=== PATIENT | male | born 1955 | race Caucasian/White ===

== ENCOUNTER 2016-05-19 07:09 | Day surgery (SDC) | payer BC ==
[2016-05-19] MEDS ORDERED: Lactated Ringers 1,000 ML IV SCH (07:30)
[2016-05-19] MEDS ORDERED: Midazolam 1 MG/ML 2 ML SDV ONE (08:18)
[2016-05-19] MEDS ORDERED: Propofol 200 MG/20 ML SDV ONE (08:18)
[2016-05-19] MEDS ORDERED: fentaNYL 100 MCG/2 ML SDV ONE (08:18)
[2016-05-19 11:25] VITALS: BP 148/82
--- NOTE | 2016-05-20 07:11 | OR ---
DATE OF PROCEDURE: 05/19/2016 PREOPERATIVE DIAGNOSES: 1. History of ulcerative colitis. 2. History of colon polyps. POSTOPERATIVE DIAGNOSES: 1. Two small colon polyps, 15 and 20 cm from the anal verge. 2. History of ulcerative colitis. 3. History of colon polyps. PROCEDURE: Colonoscopy to the cecum with biopsy resection of two small colon polyps, 50 and 20 cm from the anal verge. ANESTHESIA: IV anesthesia with monitored anesthesia care. INDICATION: This 60-year-old white male is referred for a colonoscopy because of the history of ulcer colitis and history of polyps. His last colonoscopic exam was done 5 years ago. At that time, no polyps were seen. I counseled him for a colonoscopy with possible biopsy and/or polypectomy including risks and alternatives, and he gave his informed consent to proceed. DESCRIPTION OF PROCEDURE: The patient was placed in the left lateral decubitus position. IV anesthesia was administered by the Anesthesia Service. Time-out was held. A rectal exam was performed, which was unremarkable. The flexible video Olympus colonoscope was introduced through his anus, up his rectum, and out his colon all way to the cecum. Once the cecum was reached, the scope was slowly withdrawn examining the mucosa throughout. No mucosal abnormalities were noted till we reached 50 cm from the anal verge. Here a small polyp was seen, which was removed with the biopsy forceps. The scope was withdrawn further with another small polyp seen 20 cm from the anal verge which was again removed with the biopsy forceps. The scope was brought back into the rectum, where it was retroflexed. The distal rectum appeared unremarkable. The scope was straightened and removed. He tolerated the procedure well. Adelso Heaton MD /[id number] MTDD
== END 2016-05-19 11:44 | disposition home or self-care (01) ==
LOC: JP.SDS 07:09
PROVIDERS: ATTEND Surgery
PROC: 0DBE8ZX Excision of Large Intestine, Via Natural or Artificial Opening Endoscopic, Diagnostic (ICD-10-PCS; principal; 2016-05-19)
DX: Z12.11 Encounter for screening for malignant neoplasm of colon (principal); D12.6 Benign neoplasm of colon, unspecified
CPT/HCPCS: 45380; J2250; J2704; J3010; J7120; 88305

== ENCOUNTER 2019-12-11 13:53 | Emergency (ER) | payer BC, OTHER ==
[2019-12-11 14:11] VITALS: BP 160/106; PULSE 82
--- NOTE | 2019-12-11 14:53 | EDM.PDOC ---
ED HPI GENERAL MEDICAL PROBLEM - General Chief Complaint: General Stated Complaint: SUGAR LEVLES Time Seen by Provider: 12/11/19 14:49 Source of Information: Reports: Patient History Limitations: Reports: No Limitations - History of Present Illness INITIAL COMMENTS - FREE TEXT/NARRATIVE: pt has had a dry hacky cough for the past week. Today he felt very weak and was not able to do his work. He ate some sugar because he thought it could be a low sugar. Pt did not vomit. He has had chills all day and a headache. He was not able to eat this am. Onset: Today, Gradual, Other ( this has been coming and going all day. ) Duration: Hour(s): Location: Reports: Generalized, Other ( alot of muscle weakness and pain. ) Associated Symptoms: Reports: Loss of Appetite, Malaise, Weakness - Related Data Allergies Allergy/AdvReac Type Severity Reaction Status Date / Time KENNETH Inhibitors Allergy Cough Verified 12/11/19 14:07 meperidine Allergy Shaking Verified 12/11/19 14:07 Home Meds: Home Meds Metoprolol Succinate [Toprol XL] 50 mg PO DAILY 05/16/16 [History] metFORMIN [Glucophage] 500 mg PO BID 05/16/16 [History] Simvastatin 20 mg PO DAILY 04/21/18 [History] Past Medical History HEENT History: Reports: Impaired Vision Cardiovascular History: Reports: High Cholesterol, Hypertension Gastrointestinal History: Reports: Colon Polyp, Other (See Below) Other Gastrointestinal History: colitis Genitourinary History: Reports: Diabetic Nephropathy, Prostate Disorder Musculoskeletal History: Reports: Arthritis Neurological History: Reports: Neuropathy, Diabetic Endocrine/Metabolic History: Reports: Diabetes, Type II, Obesity/BMI 30+ Immunologic History: Reports: Other (See Below) Other Immunologic History: [place], [place] - Infectious Disease History Infectious Disease History: Reports: Chicken Pox, Measles - Past Surgical History Head Surgeries/Procedures: Reports: None HEENT Surgical History: Reports: None Cardiovascular Surgical History: Reports: None GI Surgical History: Reports: Appendectomy, Colonoscopy Endocrine Surgical History: Reports: None Neurological Surgical History: Reports: None Musculoskeletal Surgical History: Reports: Knee Replacement, Shoulder Surgery Dermatological Surgical History: Reports: None Social & Family History - Tobacco Use Smoking Status *Q: Never Smoker Second Hand Smoke Exposure: No - Caffeine Use Caffeine Use: Reports: Coffee - Recreational Drug Use Recreational Drug Use: No ED ROS GENERAL - Review of Systems Review Of Systems: See Below Constitutional: Reports: Chills, Malaise, Weakness, Decreased Appetite HEENT: Reports: No Symptoms Respiratory: Reports: Other ( hack dry cough) Cardiovascular: Reports: No Symptoms Endocrine: Reports: No Symptoms GI/Abdominal: Reports: No Symptoms : Reports: No Symptoms Musculoskeletal: Reports: No Symptoms Skin: Reports: No Symptoms ED EXAM, GENERAL - Physical Exam Exam: See Below Free Text/Narrative:: pt appears lethargic and very fatiqued, He just became ill this am. His appears to have the same thing. Exam Limited By: No Limitations General Appearance: Alert, Anxious, Mild Distress, Other (pupils are equal and reactive. ) Ears: Normal TMs Nose: Normal Inspection Throat/Mouth: Normal Inspection Head: Atraumatic Neck: Normal Inspection Respiratory/Chest: No Respiratory Distress Cardiovascular: Regular Rate, Rhythm, Tachycardia GI/Abdominal: Soft, Non-Tender (Male) Exam: Deferred Rectal (Males) Exam: Deferred Back Exam: Normal Inspection Extremities: Normal Inspection Neurological: Alert, Oriented, Normal Cognition Course - Vital Signs Last Recorded V/S: Last Vital Signs Temp 37.1 C 12/11/19 14:11 Pulse 82 12/11/19 14:11 Resp 16 12/11/19 14:11 BP 160/106 H 12/11/19 14:11 Pulse Ox 98 12/11/19 14:11 - Orders/Labs/Meds Labs: Laboratory Tests 12/11/19 12/11/19 12/11/19 Range/Units 14:23 14:23 14:45 WBC 33.9 H* (4.5-11.0) K/uL RBC 5.65 (4.30-5.90) M/uL Hgb 16.5 H (12.0-15.0) g/dL Hct 49.3 (40.0-54.0) % MCV 87 (80-98) fL MCH 29 (27-31) pg MCHC 34 (32-36) % Plt Count 231 (150-400) K/uL Add Manual Diff Yes Neutrophils % (Manual) 69 H (36-66) % Band Neutrophils % 16 H (5-11) % Lymphocytes % (Manual) 10 L (24-44) % Monocytes % (Manual) 5 (2-6) % Sodium 141 (140-148) mmol/L Potassium 3.9 (3.6-5.2) mmol/L Chloride 105 (100-108) mmol/L Carbon Dioxide 24 (21-32) mmol/L Anion Gap 11.6 (5.0-14.0) mmol/L BUN 20 H (7-18) mg/dL Creatinine 1.1 (0.8-1.3) mg/dL Est Cr Clr Drug Dosing 66.50 mL/min Estimated GFR (MDRD) > 60 (>60) Glucose 130 H (74-106) mg/dL Calcium 9.0 (8.5-10.1) mg/dL Total Bilirubin 1.0 (0.2-1.0) mg/dL AST 11 L (15-37) U/L ALT 23 (12-78) U/L Alkaline Phosphatase 51 (46-116) U/L Total Protein 8.1 (6.4-8.2) g/dL Albumin 4.0 (3.4-5.0) g/dL Globulin 4.1 H (2.3-3.5) g/dL Albumin/Globulin Ratio 1.0 L (1.2-2.2) Urine Color (YELLOW) Urine Appearance (CLEAR) Urine pH (5.0-8.0) Ur Specific Onward (1.008-1.030) Urine Protein (NEGATIVE) mg/dL Urine Glucose (UA) (NEGATIVE) mg/dL Urine Ketones (NEGATIVE) mg/dL Urine Occult Blood (NEGATIVE) Urine Nitrite (NEGATIVE) Urine Bilirubin (NEGATIVE) Urine Urobilinogen (0.2-1.0) EU/dL Ur Leukocyte Esterase (NEGATIVE) Urine RBC (0-5) Urine WBC (0-5) Ur Epithelial Cells Urine Bacteria Urine Mucus SARS-CoV-2 RNA (PINA) Negative (NEGATIVE) 12/11/19 Range/Units 16:02 WBC (4.5-11.0) K/uL RBC (4.30-5.90) M/uL Hgb (12.0-15.0) g/dL Hct (40.0-54.0) % MCV (80-98) fL MCH (27-31) pg MCHC (32-36) % Plt Count (150-400) K/uL Add Manual Diff Neutrophils % (Manual) (36-66) % Band Neutrophils % (5-11) % Lymphocytes % (Manual) (24-44) % Monocytes % (Manual) (2-6) % Sodium (140-148) mmol/L Potassium (3.6-5.2) mmol/L Chloride (100-108) mmol/L Carbon Dioxide (21-32) mmol/L Anion Gap (5.0-14.0) mmol/L BUN (7-18) mg/dL Creatinine (0.8-1.3) mg/dL Est Cr Clr Drug Dosing mL/min Estimated GFR (MDRD) (>60) Glucose (74-106) mg/dL Calcium (8.5-10.1) mg/dL Total Bilirubin (0.2-1.0) mg/dL AST (15-37) U/L ALT (12-78) U/L Alkaline Phosphatase (46-116) U/L Total Protein (6.4-8.2) g/dL Albumin (3.4-5.0) g/dL Globulin (2.3-3.5) g/dL Albumin/Globulin Ratio (1.2-2.2) Urine Color Yellow (YELLOW) Urine Appearance Clear (CLEAR) Urine pH 5.5 (5.0-8.0) Ur Specific Onward >= 1.030 (1.008-1.030) Urine Protein Negative (NEGATIVE) mg/dL Urine Glucose (UA) Negative (NEGATIVE) mg/dL Urine Ketones Negative (NEGATIVE) mg/dL Urine Occult Blood Negative (NEGATIVE) Urine Nitrite Negative (NEGATIVE) Urine Bilirubin Negative (NEGATIVE) Urine Urobilinogen 0.2 (0.2-1.0) EU/dL Ur Leukocyte Esterase Negative (NEGATIVE) Urine RBC Not seen (0-5) Urine WBC Not seen (0-5) Ur Epithelial Cells Not seen Urine Bacteria Not seen Urine Mucus Few SARS-CoV-2 RNA (PINA) (NEGATIVE) Meds: Medications Discontinued Medications Generic Name Dose Route Start Last Admin Trade Name Adityaq PRN Reason Stop Dose Admin Acetaminophen 650 mg 12/11/19 15:57 12/11/19 16:03 Tylenol PO 12/11/19 15:58 650 mg NOW ONE Administration Sodium Chloride 1,000 mls @ 999 mls/hr 12/11/19 15:00 12/11/19 15:02 Normal Saline IV 999 mls/hr ASDIRECTED ANITA Administration - Re-Assessments/Exams Free Text/Narrative Re-Assessment/Exam: 12/16/19 01:54 pt was found to have a very high wbc just like his , both are over 30,000 Departure - Departure Time of Disposition: 16:24 Disposition: Home, Self-Care 01 Condition: Fair Clinical Impression: Febrile illness, Dehydration - Discharge Information Instructions: Dehydration, Adult, [id number], Fever, Adult, [id number] Referrals: Josiah Bennett MD [Primary Care Provider] - Forms: ED Department Discharge Care Plan Goals: push fluids, tylenol or motrin for fever or muscle pain, rtc tomorrow for repeat wbc and diff. rtc if temp should become very high Sepsis Event Note (ED) - Evaluation Sepsis Screening Result: No Definite Risk
[2019-12-11] MEDS ORDERED: Sodium Chloride 0.9% 1,000 ML IV SCH (15:00)
[2019-12-11] MEDS ORDERED: Acetaminophen 325 MG Tab PO ONE (15:57)
--- NOTE | 2019-12-12 10:29 | CR ---
CHEST: Portable 12/11/2019 at 3:52 PM CLINICAL HISTORY:Cough and leukocytosis COMPARISON:2008 FINDINGS: The heart is enlarged. Pulmonary vascularity is normal. There is some elevation of the right hemidiaphragm. This is increased since prior study. There is minimal streaky density in the left lower lobe. Impression: Cardiomegaly Streaky density in left lower lobe may represent small pneumonia Elevation of the right hemidiaphragm increased since 2008.
== END 2019-12-11 16:35 | disposition home or self-care (01) ==
LOC: JP.ED 13:53
DX: E86.0 Dehydration (principal); R50.9 Fever, unspecified; I10 Essential (primary) hypertension; E78.00 Pure hypercholesterolemia, unspecified; E11.40 Type 2 diabetes mellitus with diabetic neuropathy, unspecified; E11.21 Type 2 diabetes mellitus with diabetic nephropathy; E66.9 Obesity, unspecified; Z68.34 Body mass index [BMI] 34.0-34.9, adult; Z88.8 Allergy status to other drugs, medicaments and biological substances; Z79.84 Long term (current) use of oral hypoglycemic drugs; Z79.899 Other long term (current) drug therapy; Z20.828 Contact with and (suspected) exposure to other viral communicable diseases
CPT/HCPCS: 36415; 71045; 80053; 81001; 85025; 87081; 87635; 87804; 87880; 96360; 99284; A9270; J7030; 99282; U0002